=== PATIENT | female | born 1965 | race Caucasian/White ===

== ENCOUNTER 2016-08-30 06:30 | Emergency (ER) | payer OTHER ==
[2016-08-30] MEDS ORDERED: diltiaZEM INJ 5 MG/ML VIAL IVP STA (07:22)
[2016-08-30] MEDS ORDERED: diltiaZEM INJ 5 MG/ML VIAL ONE (07:25)
[2016-08-30] MEDS ORDERED: IOPAMIDOL-300 100 ML VIAL IVP ONE (08:12)
== END 2016-08-30 11:29 | disposition home or self-care (01) ==
DX: I47.1 Supraventricular tachycardia (principal); J45.909 Unspecified asthma, uncomplicated; R91.8 Other nonspecific abnormal finding of lung field
CPT/HCPCS: 36415; 71275; 80053; 81003; 83690; 84443; 84484; 85025; 93005; 93010; 96374; 99284; 99285; Q9967

== ENCOUNTER 2019-01-10 10:43 | Outpatient (CLI) | payer MEDICAID ==
[2019-01-10 11:04] LABS: BASOPHILS # (AUTO) 0.1 10^3/uL (0.0-0.1); BASOPHILS % (AUTO) 0.7 %; EOSINOPHILS # (AUTO) 0.6 10^3/uL (0.0-0.7); EOSINOPHILS % (AUTO) 5.1 %; HGB - HEMOGLOBIN 14.6 g/dL (12.0-16.0); LYMPHOCYTES # (AUTO) 2.7 10^3/uL (1.5-3.5); LYMPHOCYTES % (AUTO) 22.2 %; MEAN CORPUSCULAR HEMOGLOBIN 29.1 pg (27.0-31.0); MEAN CORPUSCULAR HGB CONC 31.9 g/dL (32.0-36.0); MEAN CORPUSCULAR VOLUME 91.2 fL (81.0-99.0); MEAN PLATELET VOLUME 9.9 fL (7.9-10.8); MONOCYTES # (AUTO) 0.8 10^3/uL (0.0-1.0); MONOCYTES % (AUTO) 6.1 %; NEUTROPHILS # (AUTO) 8.1 10^3/uL (1.5-6.6); NEUTROPHILS % (AUTO) 65.5 %; PLT - PLATELET COUNT 337 10^3/uL (130-450); RED BLOOD COUNT 5.01 10^6/uL (4.20-5.40); RED CELL DISTRIBUTION WIDTH 14.2 % (12.0-15.0); WHITE BLOOD COUNT 12.4 x10^3/uL (4.8-10.8)
[2019-01-10 11:25] LABS: ALBUMIN 4.2 g/dL (3.2-5.5); ALBUMIN/GLOBULIN RATIO 1.4 (1.0-2.2); ALKALINE PHOSPHATASE 90 IU/L (42-121); ALT ALANINE AMINOTRANSFERASE 17 IU/L (10-60); AST ASPARTATE AMINOTRANSFERASE 15 IU/L (10-42); BUN - BLOOD UREA NITROGEN 14 mg/dL (6-20); CALCIUM 9.4 mg/dL (8.5-10.3); CARBON DIOXIDE - CO2 23 mmol/L (21-32); CHLORIDE 105 mmol/L (101-111); CHOL/HDL RATIO 4.2 (<4.4); CHOLESTEROL 180 mg/dL; CREATININE 0.6 mg/dL (0.4-1.0); GFR - MDRD 104 (>89); GLUCOSE 101 mg/dL (70-100); HDL CHOLESTEROL 43 mg/dL; LDL CHOLESTEROL,CALCULATED 117 mg/dL; LDL/HDL RATIO 2.7 (<4.4); SODIUM 139 mmol/L (135-145); TOTAL PROTEIN 7.2 g/dL (6.7-8.2); VLDL CHOLESTEROL 20 mg/dL
[2019-01-10 11:26] LABS: HB2 TOTAL 15.3 g/dL; HEMOGLOBIN A1C 0.64 g/dL
[2019-01-10 12:33] LABS: THYROID STIMULATING HORMONE 2.35 uIU/mL (0.34-5.60)
[2019-01-10 12:35] LABS: FREE T4 (FREE THYROXINE) 1.08 ng/dL (0.58-1.64)
== END 2019-01-10 10:44 | disposition home or self-care (01) ==
LOC: LAB 10:43
PROVIDERS: ATTEND Family Medicine
DX: I47.1 Supraventricular tachycardia (principal); J45.909 Unspecified asthma, uncomplicated; E66.01 Morbid (severe) obesity due to excess calories
CPT/HCPCS: 36415; 80053; 80061; 83036; 83721; 84439; 84443; 84481; 85025

== ENCOUNTER 2019-05-03 08:52 | Emergency (ER) | payer MEDICAID ==
--- NOTE | 2019-05-03 09:06 | ED Physician Documentation ---
PD HPI Fall - Stated complaint Stated Complaint: FALL/R LEG/KNEE/SOA - History obtained from History obtained from: Patient - History of Present Illness Mechanism of injury: Slipped (walking down ramp that was slick with roberts, she slid on foot, with ankle twist, and leg flexed and under her in valgus stress. Did hit onto buttock and then back, with feeling of some dyspnea but not hurting to breath. 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 No: Head, Neck Associated symptoms: No: LOC, AMS, Neck pain Worsens with: Movement Contributing factors: No: Anticoagulated Similar symptoms before: Has not had sx before Recently seen: Not recently seen Review of Systems Cardiac: denies: Chest pain / pressure GI: denies: Abdominal Pain Skin: denies: Abrasion (s), Laceration (s) Musculoskeletal: denies: Neck pain, Back pain Neurologic: denies: Focal weakness, Numbness, Altered mental status, Headache, Head injury, LOC PD PAST MEDICAL HISTORY - Past Medical History Cardiovascular: Other Respiratory: Asthma Endocrine/Autoimmune: None GI: None SQL SERVER DBA: None : None HEENT: None Musculoskeletal: None - Past Surgical History Past Surgical History: Yes General: Cholecystectomy, Other HEENT: Tonsil/Adenoidectomy - Present Medications Home Medications: Ambulatory Orders Medication Instructions Recorded Confirmed Albuterol Sulfate [Albuterol 1 puffs INH DAILY PRN 05/08/14 08/30/16 Sulfate Hfa] Fluticasone/Salmeterol 100/50 1 puffs INH DAILY PRN 05/08/14 08/30/16 [Advair 100 Mcg/50 Mcg] Alprazolam [Xanax] 0 mg PRN 05/03/19 Buspirone HCl 10 mg DAILY 05/03/19 05/03/19 Cartia Xt Sr 120 mg DAILY 05/03/19 Escitalopram [Lexapro] 10 mg DAILY 05/03/19 05/03/19 Montelukast [Singulair] 1 tab DAILY 05/03/19 05/03/19 Naproxen 500 mg PO BID #20 tablet 05/03/19 Tizanidine HCl 4 mg PO TID PRN #25 capsule 05/03/19 - Allergies Allergies/Adverse Reactions: Allergies Allergy/AdvReac Type Severity Reaction Status Date / Time amoxicillin [Amoxicillin] Allergy Edema Verified 08/30/16 06:37 Penicillins Allergy Edema Verified 08/30/16 06:37 codeine AdvReac Unknown Verified 08/30/16 06:37 - Social History Does the pt smoke?: No Smoking Status: Never smoker Does the pt drink ETOH?: Yes Does the pt have substance abuse?: No - Immunizations Immunizations are current?: Yes - POLST Patient has POLST: No PD ED PE NORMAL - Vitals Vital signs reviewed: Yes - General General: Alert and oriented X 3, No acute distress, Well developed/nourished - HEENT HEENT: Atraumatic - Neck Neck: Supple, no meningeal sign, No bony TTP, No adenopathy - Cardiac Cardiac: RRR, No murmur - Respiratory Respiratory: Clear bilaterally - Abdomen Abdomen: Soft, Non tender - Back Back: No CVA TTP, Other (some tender lower back muscles. ) - Derm Derm: Normal color, Warm and dry - Neuro Neuro: Alert and oriented X 3, No motor deficit, Normal speech Results - Vitals Vitals: Oxygen O2 Source Room air Procedures - Splint (location) right ankle Splint applied by: Tech Type of splint: Other (boot orthosis) Other: Patient tolerated well, Crutches provided PD MEDICAL DECISION MAKING - ED course Complexity details: reviewed results, considered differential (seems MCL strain, and has ankle fracture. Large habitus, and will have problems with total nonweightbearing. Boot orthosis and crutches. Gave Rx for knee scooter. ), d/w patient Departure - Departure Disposition: 01 Home, Self Care Clinical Impression: Fall from slip, trip, or stumble Qualifiers: Encounter type: initial encounter Qualified Code(s): W01.0XXA - Fall on same level from slipping, tripping and stumbling without subsequent striking against object, initial encounter Low back strain Qualifiers: Encounter type: initial encounter Qualified Code(s): S39.012A - Strain of muscle, fascia and tendon of lower back, initial encounter Fibula fracture Qualifiers: Encounter type: initial encounter Fibula location: distal Fracture type: closed Fracture morphology: torus Laterality: right Qualified Code(s): S82.821A - Torus fracture of lower end of right fibula, initial encounter for closed fracture MCL sprain of right knee Qualifiers: Encounter type: initial encounter Qualified Code(s): S83.411A - Sprain of medial collateral ligament of right knee, initial encounter Condition: Stable Record reviewed to determine appropriate education?: Yes Instructions: ED Fx Ankle Lateral Malleolus, ED Sprain Knee Collateral Ligaments Follow-Up: Lina Koch ARNP, PRIMARY SPECIAL EDUCATOR-C [Primary Care Provider] - Yossi Ivy MD [Provider Admit Priv/Credential] - Prescriptions: Naproxen 500 mg PO BID #20 tablet Tizanidine HCl 4 mg PO TID PRN #25 capsule PRN Reason: Spasms Comments: Minimal to no weightbearing on the right leg due to the ankle fracture and knee sprain. Keep the splint on most of the time. You can have it off for changing socks and rest. Use some naproxen (Aleve) 500 mg twice daily. Add Tylenol if needed for pains. Tizanidine muscle relaxant if needed for spasms in the back. That may not definitely help the ankle or knee per se. Follow-up with your primary care or preferably orthopedics in about a week, call for an appointment. They want to make sure the fracture is holding his position has its initially healing and does not need any other intervention. You will be needing the cast boot for about 4 to 6 weeks with the total duration per orthopedics. Discharge Date/Time: 05/03/19 13:35
[2019-05-03] MEDS ORDERED: LORazepam 1 MG TABLET PO STA (09:21)
[2019-05-03] MEDS ORDERED: ACETAMINOPHEN 325 MG TABLET PO STA (09:21)
[2019-05-03] MEDS ORDERED: KETOROLAC 60 MG/2 ML VIAL IM STA (09:21)
--- NOTE | 2019-05-03 10:57 | XRAY Report ---
Reason: fell with leg injury and landed buttocks Procedure Date: 05/03/2019 Accession Number: [id number] / [id number] Procedure: XR - Lumbar Spine 2 View CPT Code: Final Report FULL RESULT: EXAM: LUMBOSACRAL SPINE RADIOGRAPHY EXAM DATE: 05/03/2019 10:33 AM. CLINICAL HISTORY: Fell with leg injury and landed on buttocks. COMPARISONS: None. TECHNIQUE: 3 views. FINDINGS: Examination is limited by underpenetration and motion in the setting of qualitative osteopenia. Alignment: Normal. No spondylolisthesis or scoliosis. Assessment limited by poor visualization, approximately 5 degrees of dextroconvex lumbar scoliosis centered about L3. No definite listhesis as visualized, lower lumbar spine visualization is very limited. Bones: Five [id number] lumbar vertebral bodies are present. The bones are qualitatively osteopenic; this limits evaluation for underlying fractures or masses. No definite fracture seen on this severely limited study. Disks: Normal. Disk heights are maintained as seen. Facets: Not well seen. Sacroiliac Joints: Unremarkable. Soft Tissues: Normal. The visualized bowel gas pattern is normal. IMPRESSION: Very limited study with qualitative osteopenia. Within study limitations no gross fracture or malalignment. RADIA
--- NOTE | 2019-05-03 10:59 | XRAY Report ---
Reason: fell with leg injury and landed buttocks Procedure Date: 05/03/2019 Accession Number: [id number] / [id number] Procedure: XR - Chest 2 View X-Ray CPT Code: 68011 Final Report FULL RESULT: EXAM: CHEST RADIOGRAPHY EXAM DATE: 05/03/2019 10:36 AM. CLINICAL HISTORY: Fell with leg injury and landed on buttocks. COMPARISON: None. TECHNIQUE: 2 views. FINDINGS: Lungs/Pleura: No focal opacities evident. No pleural effusion. No pneumothorax. Normal volumes. Mediastinum: Heart and mediastinal contours are unremarkable. Other: Kyphotic spinal curvature is noted. IMPRESSION: No acute cardiopulmonary abnormality. RADIA
--- NOTE | 2019-05-03 11:05 | XRAY Report ---
Reason: fell with leg injury and landed buttocks Procedure Date: 05/03/2019 Accession Number: [id number] / [id number] Procedure: XR - Ankle 3 View RT CPT Code: Final Report FULL RESULT: EXAM: RIGHT ANKLE RADIOGRAPHY EXAM DATE: 05/03/2019 10:38 AM. CLINICAL HISTORY: Fell with leg injury and landed on buttocks. COMPARISON: None. TECHNIQUE: 3 views. FINDINGS: Bones: There is irregularity about the lateral cortex of the distal fibula with disruption of the osseous trabecular pattern across the bone, fracture. Qualitatively osteopenic. Posttraumatic degenerative changes are seen along the dorsal aspect of the midfoot. Mild to moderate inferior calcaneal spurring. No fractures or bone lesions. Joints: The ankle mortise is asymmetric with an overall narrowed appearance of the lateral malleolus as visualized and no definite widening of the syndesmosis. Soft Tissues: Soft tissue swelling without radiopaque foreign body in the region of fibula fracture. IMPRESSION: Distal fibula fracture, likely a Garcia C1. Please note that no definite widening of the tibiofibular syndesmosis is visualized, and there is no definite disruption of the medial mortise. RADIA
--- NOTE | 2019-05-03 11:09 | XRAY Report ---
Reason: fell with leg injury and landed buttocks Procedure Date: 05/03/2019 Accession Number: [id number] / [id number] Procedure: XR - Knee 3 View RT CPT Code: Final Report FULL RESULT: EXAM: RIGHT KNEE RADIOGRAPHY, 3 VIEWS EXAM DATE: 05/03/2019 10:37 AM. CLINICAL HISTORY: 54-year-old female status post fall with leg injury and landed buttocks. COMPARISON: None. TECHNIQUE: AP, crosstable lateral and patellofemoral views. FINDINGS: Bones: Minor hypertrophic changes at the tibial spines and patella. No fractures or bone lesions. Joints: Moderate narrowing medial joint space and moderate to severe narrowing of the patellofemoral joint. Small effusion in the suprapatellar bursa. No subluxation. Soft Tissues: Normal. No soft tissue swelling. IMPRESSION: Moderate joint space narrowing medial joint compartment with moderate to severe osteoarthritis in the patellofemoral joint with small joint effusion. No subluxation, fracture or other posttraumatic abnormality noted. RADIA
[2019-05-03 13:20] VITALS: BP 156/78
== END 2019-05-03 13:35 | disposition home or self-care (01) ==
LOC: ED 08:52
DX: S82.821A Torus fracture of lower end of right fibula, initial encounter for closed fracture (principal); S83.411A Sprain of medial collateral ligament of right knee, initial encounter; S39.012A Strain of muscle, fascia and tendon of lower back, initial encounter; W00.1XXA Fall from stairs and steps due to ice and snow, initial encounter; Y93.01 Activity, walking, marching and hiking
CPT/HCPCS: 71046; 72100; 73562; 73610; 96372; 99284; A9270; J8499

== ENCOUNTER 2020-11-24 08:00 | Outpatient (CLI) | payer MEDICAID ==
[2020-11-24 17:51] LABS: BASOPHILS # (AUTO) 0.1 10^3/uL (0.0-0.1); BASOPHILS % (AUTO) 0.6 %; EOSINOPHILS # (AUTO) 0.5 10^3/uL (0.0-0.7); EOSINOPHILS % (AUTO) 4.6 %; HCT - HEMATOCRIT 44.2 % (37.0-47.0); HGB - HEMOGLOBIN 14.3 g/dL (12.0-16.0); LYMPHOCYTES # (AUTO) 2.2 10^3/uL (1.5-3.5); LYMPHOCYTES % (AUTO) 18.9 %; MEAN CORPUSCULAR HEMOGLOBIN 30.2 pg (27.0-31.0); MEAN CORPUSCULAR HGB CONC 32.4 g/dL (32.0-36.0); MEAN CORPUSCULAR VOLUME 93.4 fL (81.0-99.0); MEAN PLATELET VOLUME 10.5 fL (7.9-10.8); MONOCYTES # (AUTO) 0.7 10^3/uL (0.0-1.0); MONOCYTES % (AUTO) 6.2 %; NEUTROPHILS # (AUTO) 8.1 10^3/uL (1.5-6.6); NEUTROPHILS % (AUTO) 69.2 %; PLT - PLATELET COUNT 334 10^3/uL (130-450); RED BLOOD COUNT 4.73 10^6/uL (4.20-5.40); RED CELL DISTRIBUTION WIDTH 14.4 % (12.0-15.0); WHITE BLOOD COUNT 11.6 x10^3/uL (4.8-10.8)
[2020-11-24 18:22] LABS: ALBUMIN 4.1 g/dL (3.2-5.5); ALBUMIN/GLOBULIN RATIO 1.5 (1.0-2.2); ALKALINE PHOSPHATASE 88 IU/L (42-121); ALT ALANINE AMINOTRANSFERASE 13 IU/L (10-60); AST ASPARTATE AMINOTRANSFERASE 19 IU/L (10-42); BUN - BLOOD UREA NITROGEN 16 mg/dL (6-20); CALCIUM 8.9 mg/dL (8.5-10.3); CARBON DIOXIDE - CO2 27 mmol/L (21-32); CHLORIDE 104 mmol/L (101-111); CHOL/HDL RATIO 3.7 (<4.4); CHOLESTEROL 164 mg/dL; CREATININE 0.6 mg/dL (0.4-1.0); GFR - MDRD 103 (>89); GLUCOSE 99 mg/dL (70-100); HDL CHOLESTEROL 44 mg/dL; LDL CHOLESTEROL,CALCULATED 100 mg/dL; LDL/HDL RATIO 2.3 (<4.4); POTASSIUM 4.5 mmol/L (3.5-5.0); SODIUM 141 mmol/L (135-145); TOTAL PROTEIN 6.9 g/dL (6.7-8.2); TRIGLYCERIDES 100 mg/dL; URIC ACID 5.7 mg/dL (2.6-7.2); VLDL CHOLESTEROL 20 mg/dL
[2020-11-24 18:30] LABS: THYROID STIMULATING HORMONE 2.25 uIU/mL (0.34-5.60)
[2020-11-24 18:32] LABS: CRP - C-REACTIVE PROTEIN < 1.0 mg/dL (0-1.0)
== END 2020-11-24 23:59 | disposition home or self-care (01) ==
LOC: LAB.WCP 08:00
PROVIDERS: ATTEND Family Medicine
DX: Z00.00 Encounter for general adult medical examination without abnormal findings (principal); D72.829 Elevated white blood cell count, unspecified; M79.673 Pain in unspecified foot
CPT/HCPCS: 36415; 80053; 80061; 83721; 84443; 84550; 85025; 85651; 86140

== ENCOUNTER 2020-11-24 13:55 | Outpatient (CLI) | payer MEDICAID ==
--- NOTE | 2020-11-24 16:52 | XRAY Report ---
PROCEDURE: Foot 3 View LT INDICATIONS: L foot pain TECHNIQUE: 3 views of the foot were acquired. COMPARISON: None FINDINGS: Bones: There is osteopenia. Osteophytic changes are noted throughout left foot more prominent involv ing midfoot joints particularly at naviculocuneiform joint. No fractures or dislocations. No suspici ous bony lesions. Soft tissues: No tibiotalar joint effusion. Achilles tendon appears normal. IMPRESSION: Osteoarthritic changes throughout left foot as above. No acute fracture or dislocation. Diffuse osteo penia. Reviewed by: Maximiliano Spencer MD on 11/24/2020 4:51 PM PDT Approved by: Maximiliano Spencer MD on 11/24/2020 4:51 PM PDT Station ID: [id number]
== END 2020-11-24 13:56 | disposition home or self-care (01) ==
LOC: DI 13:55
PROVIDERS: ATTEND Family Medicine
DX: M79.672 Pain in left foot (principal); M19.072 Primary osteoarthritis, left ankle and foot

== ENCOUNTER 2021-12-31 13:47 | Outpatient (CLI) | payer MEDICAID ==
[2021-12-31 14:13] LABS: BASOPHILS # (AUTO) 0.1 10^3/uL (0.0-0.1); BASOPHILS % (AUTO) 0.5 %; EOSINOPHILS # (AUTO) 0.6 10^3/uL (0.0-0.7); EOSINOPHILS % (AUTO) 4.4 %; HCT - HEMATOCRIT 43.7 % (37.0-47.0); HGB - HEMOGLOBIN 14.3 g/dL (12.0-16.0); LYMPHOCYTES # (AUTO) 2.8 10^3/uL (1.5-3.5); LYMPHOCYTES % (AUTO) 21.5 %; MEAN CORPUSCULAR HEMOGLOBIN 30.2 pg (27.0-31.0); MEAN CORPUSCULAR HGB CONC 32.7 g/dL (32.0-36.0); MEAN CORPUSCULAR VOLUME 92.2 fL (81.0-99.0); MEAN PLATELET VOLUME 9.8 fL (7.9-10.8); MONOCYTES # (AUTO) 0.8 10^3/uL (0.0-1.0); MONOCYTES % (AUTO) 5.8 %; NEUTROPHILS # (AUTO) 8.8 10^3/uL (1.5-6.6); NEUTROPHILS % (AUTO) 67.3 %; PLT - PLATELET COUNT 323 10^3/uL (130-450); RED BLOOD COUNT 4.74 10^6/uL (4.20-5.40); RED CELL DISTRIBUTION WIDTH 14.2 % (12.0-15.0)
[2021-12-31 14:37] LABS: ALBUMIN 4.2 g/dL (3.2-5.5); ALBUMIN/GLOBULIN RATIO 1.5 (1.0-2.2); ALKALINE PHOSPHATASE 80 IU/L (42-121); ALT ALANINE AMINOTRANSFERASE 22 IU/L (10-60); AST ASPARTATE AMINOTRANSFERASE 17 IU/L (10-42); BILIRUBIN,TOTAL 0.5 mg/dL (0.2-1.0); BUN - BLOOD UREA NITROGEN 17 mg/dL (6-20); CALCIUM 9.3 mg/dL (8.5-10.3); CARBON DIOXIDE - CO2 27 mmol/L (21-32); CHLORIDE 104 mmol/L (101-111); CHOL/HDL RATIO 3.7 (<4.4); CHOLESTEROL 191 mg/dL; CREATININE 0.6 mg/dL (0.4-1.0); GFR - MDRD 103 (>89); GLUCOSE 100 mg/dL (70-100); HDL CHOLESTEROL 51 mg/dL; LDL CHOLESTEROL,CALCULATED 126 mg/dL; LDL/HDL RATIO 2.5 (<4.4); SODIUM 140 mmol/L (135-145); TRIGLYCERIDES 72 mg/dL; VLDL CHOLESTEROL 14 mg/dL
--- NOTE | 2021-12-31 14:38 | XRAY Report ---
PROCEDURE: Knee 3 View LT INDICATIONS: KNEE JOINT PAIN, LEFT TECHNIQUE: 3 views of the left knee(s) were acquired. COMPARISON: None. FINDINGS: Bones: No fractures or dislocations. Moderate tricompartmental osteoarthritis is seen more prominen t in lateral femoral tibial compartment and lateral patellofemoral compartment. No suspicious bony le sions. Soft tissues: Moderate suprapatellar joint effusion is seen. No suspicious soft tissue calcification s. IMPRESSION: Moderate tricompartmental osteoarthritis and moderate joint effusion. No fracture or dis location. Reviewed by: Maximiliano Spencer MD on 12/31/2021 2:37 PM PDT Approved by: Maximiliano Spencer MD on 12/31/2021 2:37 PM PDT Station ID: [id number]
[2021-12-31 14:49] LABS: THYROID STIMULATING HORMONE 1.79 uIU/mL (0.34-5.60)
== END 2021-12-31 13:48 | disposition home or self-care (01) ==
LOC: DI 13:47
PROVIDERS: ATTEND Physician Assistant
DX: M17.12 Unilateral primary osteoarthritis, left knee (principal); M25.462 Effusion, left knee; I10 Essential (primary) hypertension; J45.909 Unspecified asthma, uncomplicated
CPT/HCPCS: 36415; 80053; 80061; 83721; 84443; 85025

== ENCOUNTER 2022-02-19 08:00 | Outpatient (CLI) | payer MEDICAID ==
--- NOTE | 2022-02-19 13:58 | XRAY Report ---
PROCEDURE: Knee 3 View LT INDICATIONS: LEFT KNEE PAIN TECHNIQUE: 3 views of the left knee(s) were acquired. COMPARISON: None. FINDINGS: Bones: No fractures or dislocations. No suspicious bony lesions. Tricompartmental bulky osteophyte s. Moderate medial compartment joint space loss. Although there was no sunrise view, there is likely significant patellofemoral joint space loss. Soft tissues: Minimal joint effusion. No suspicious soft tissue calcifications. IMPRESSION: Severe degenerative arthritis of the left knee. Reviewed by: Angel Jasso MD on 02/19/2022 1:56 PM PDT Approved by: Angel Jasso MD on 02/19/2022 1:56 PM PDT Station ID: [id number]
== END 2022-02-19 23:59 | disposition home or self-care (01) ==
LOC: DI.WOS 08:00
PROVIDERS: ATTEND Physician Assistant
DX: M17.12 Unilateral primary osteoarthritis, left knee (principal)

== ENCOUNTER 2023-03-15 11:39 | Outpatient (CLI) | payer MEDICAID ==
[2023-03-15 11:57] LABS: BASOPHILS # (AUTO) 0.1 10^3/uL (0.0-0.1); EOSINOPHILS # (AUTO) 0.6 10^3/uL (0.0-0.7); EOSINOPHILS % (AUTO) 4.8 %; HCT - HEMATOCRIT 44.7 % (37.0-47.0); HGB - HEMOGLOBIN 14.1 g/dL (12.0-16.0); LYMPHOCYTES # (AUTO) 2.9 10^3/uL (1.5-3.5); LYMPHOCYTES % (AUTO) 23.8 %; MEAN CORPUSCULAR HEMOGLOBIN 29.9 pg (27.0-31.0); MEAN CORPUSCULAR HGB CONC 31.5 g/dL (32.0-36.0); MEAN CORPUSCULAR VOLUME 94.7 fL (81.0-99.0); MEAN PLATELET VOLUME 9.9 fL (7.9-10.8); MONOCYTES # (AUTO) 0.8 10^3/uL (0.0-1.0); MONOCYTES % (AUTO) 6.8 %; NEUTROPHILS # (AUTO) 7.6 10^3/uL (1.5-6.6); NEUTROPHILS % (AUTO) 63.3 %; PLT - PLATELET COUNT 314 10^3/uL (130-450); RED BLOOD COUNT 4.72 10^6/uL (4.20-5.40); RED CELL DISTRIBUTION WIDTH 13.7 % (12.0-15.0)
[2023-03-15 12:07] LABS: ALBUMIN 4.3 g/dL (3.2-5.5); ALBUMIN/GLOBULIN RATIO 1.8 (1.0-2.2); ALKALINE PHOSPHATASE 79 IU/L (42-121); ALT ALANINE AMINOTRANSFERASE 11 IU/L (10-60); AST ASPARTATE AMINOTRANSFERASE 12 IU/L (10-42); BILIRUBIN,TOTAL 0.6 mg/dL (0.2-1.0); BUN - BLOOD UREA NITROGEN 15 mg/dL (6-20); CALCIUM 9.5 mg/dL (8.5-10.3); CARBON DIOXIDE - CO2 29 mmol/L (21-32); CHLORIDE 106 mmol/L (101-111); CHOL/HDL RATIO 4.1 (<4.4); CHOLESTEROL 177 mg/dL; CREATININE 0.6 mg/dL (0.6-1.3); GFR - MDRD 102 (>89); GLUCOSE 90 mg/dL (74-104); HDL CHOLESTEROL 43 mg/dL; LDL CHOLESTEROL,CALCULATED 105 mg/dL; LDL/HDL RATIO 2.4 (<4.4); POTASSIUM 4.2 mmol/L (3.5-4.5); SODIUM 140 mmol/L (135-145); TOTAL PROTEIN 6.7 g/dL (6.4-8.9); TRIGLYCERIDES 143 mg/dL (48-352); VLDL CHOLESTEROL 29 mg/dL
[2023-03-15 12:11] LABS: ESTIMATED AVERAGE GLUCOSE 108 mg/dL (70-100); HEMOGLOBIN A1c% 5.4 % (4.27-6.07)
[2023-03-15 12:22] LABS: THYROID STIMULATING HORMONE 1.71 uIU/mL (0.34-5.60)
== END 2023-03-15 11:40 | disposition home or self-care (01) ==
LOC: LAB 11:39
PROVIDERS: ATTEND Nurse Practitioner Family
DX: I10 Essential (primary) hypertension (principal); I35.8 Other nonrheumatic aortic valve disorders; E66.01 Morbid (severe) obesity due to excess calories; I47.19 Other supraventricular tachycardia
CPT/HCPCS: 36415; 80053; 80061; 83036; 83721; 84443; 85025

== ENCOUNTER 2023-06-01 15:03 | Outpatient (CLI) | payer MEDICAID | END 2023-06-01 15:04 | disposition home or self-care (01) | LOC: DI 15:03 | PROVIDERS: ATTEND Nurse Practitioner Family | DX: I35.8 Other nonrheumatic aortic valve disorders (principal); I11.9 Hypertensive heart disease without heart failure; I35.0 Nonrheumatic aortic (valve) stenosis | CPT/HCPCS: 93306 ==